=== PATIENT | female | born 1965 | race Two or more races ===

== ENCOUNTER 2025-02-27 11:09 | Emergency (ER) | payer OTHER ==
[~2025-02-27] VITALS: Ht 152.4 cm; Wt 61.7 kg
[~2025-02-27 11:09] MED LIST: ORPH100T PO
[2025-02-27] MEDS ORDERED: TRICOR145 MG PO (11:39)
[2025-02-27] MEDS ORDERED: METFORMIN HCL850 M1 PO (11:39)
[2025-02-27] MEDS ORDERED: SYNTHROID75 MCG PO (11:39)
[2025-02-27] MEDS ORDERED: LIPITOR20 MG PO (11:39)
[2025-02-27] MEDS ORDERED: KETOROLAC TROMETHAMINE 60 MG VIAL IM ONE ×2 (13:00→13:09)
== END 2025-02-27 16:43 | disposition home or self-care (01) ==
LOC: ER 11:31
DX: G89.11 Acute pain due to trauma (principal); M25.572 Pain in left ankle and joints of left foot